=== PATIENT | female | born 1985 | race Caucasian/White ===

== ENCOUNTER → 2017-02-13 10:25 | Outpatient (REF) | payer OTHER, SELFPAY ==
[2017-02-14 05:12] LABS: Hep A Ab, IgM Negative (Negative); Hepatitis B Core Antibody IgM Negative (Negative); Hepatitis B Surface Antigen Negative (Negative)
[2017-02-16 17:11] LABS: Hepatitis C Antibody 0.2 s/co ratio (0.0-0.9)
== END ==
LOC: LAB 10:25
PROVIDERS: Visit Provider Physician Assistant
DX: R74.8 Abnormal levels of other serum enzymes (principal)
CPT/HCPCS: 80074

== ENCOUNTER → 2017-03-01 08:06 | Outpatient (CLI) | payer OTHER, SELFPAY ==
--- NOTE | 2017-03-01 08:13 | US_ITS ---
Ultrasound abdomen limited HISTORY: : Elevated liver enzymes ORDERING PHYSICIAN: RIO Jones PATIENT AGE: 31 years COMPARISON: None FINDINGS: PANCREAS:Unremarkable. No obvious mass or abnormal fluid collection. No ductal dilatation LIVER:There is some increased echogenicity of the liver with decreased through transmission of sound consistent with hepatic steatosis. No focal liver lesion evident. RIGHT KIDNEY:Unremarkable. Normal size and echogenicity. No hydronephrosis GALLBLADDER: No gallstones, gallbladder wall thickening, pericholecystic fluid, or biliary dilatation. IMPRESSION: Fatty liver otherwise negative right upper quadrant ultrasound.
== END ==
PROVIDERS: PCP Emergency Medicine; Visit Provider Physician Assistant
DX: R74.8 Abnormal levels of other serum enzymes (principal)
CPT/HCPCS: 76700

== ENCOUNTER → 2018-06-04 09:31 | Outpatient (CLI) | payer OTHER, SELFPAY ==
[2018-06-04 09:58] LABS: Basophils # 0.1 K/mm3 (0-0.2); Basophils % 0.4 % (0.1-2.0); Eosinophils # 0.4 K/mm3 (0.0-0.4); Eosinophils % 2.7 % (0.1-12.0); Hematocrit 41.4 % (37.0-47.0); Hemoglobin 13.2 g/dL (12.2-16.2); Lymphocytes # 3.4 K/mm3 (0.7-4.5); Lymphocytes % 24.9 % (10-50); Mean Corpuscular HGB Conc 31.9 g/dL (31.8-35.4); Mean Corpuscular Hemoglobin 28.3 pg (27.0-31.2); Mean Corpuscular Volume 88.6 fl (81-99); Mean Platelet Volume 7.6 fl (7.4-10.4); Monocytes # 0.5 K/mm3 (0.1-1.0); Monocytes % 3.7 % (1.7-9.3); Neutrophils # 9.3 K/mm3 (1.8-7.8); Neutrophils % 68.4 % (37.0-80.0); Platelet Count 427 K/mm3 (142-424); Red Blood Count 4.67 M/mm3 (4.20-5.40); Red Cell Distribution Width 13.8 % (11.5-17.5); White Blood Count 13.6 K/mm3 (4.8-10.8)
[2018-06-04 14:41] LABS: Alanine Aminotransferase 84 U/L (12-78); Albumin Level 3.2 gm/dL (3.4-5.0); Albumin/Globulin Ratio 0.7 (1.1-1.8); Alkaline Phosphatase 138 U/L (46-116); Anion Gap 12.5 mEq/L (5-15); Aspartate Amino Transferase 53 U/L (15-37); Bilirubin,Total 0.3 mg/dL (0.2-1.0); Blood Urea Nitrogen 6 mg/dL (7-18); Calcium 9.3 mg/dL (8.5-10.1); Carbon Dioxide 31 mmol/L (21.0-32.0); Chloride 97 mmol/L (98-107); Chol/HDL Ratio 5.4 (1-3.5); Cholesterol 221 mg/dL (140-200); Creatinine,Serum 0.85 mg/dL (0.55-1.02); Estimated Glomerular Filt Rate 76 ml/min (>60); GFR (African American) 92 ML/MIN (>60); Globulin 4.4 gm/dl (1.3-3.2); Glucose 102 mg/dL (74-106); HDL Cholesterol 41 mg/dL (29-89); LDL Cholesterol 128 mg/dL (0-130); Potassium 4.5 mmoL/L (3.5-5.1); Sodium 136 mmol/L (136-145); Thyroid Stimulating Hormone 2.05 uIU/ml (0.358-3.740); Total Protein,Serum 7.6 gm/dL (6.4-8.2); Triglycerides 261 mg/dL (30-200); VLDL Cholesterol 52 mg/dL (0-40)
== END ==
PROVIDERS: Visit Provider Psychiatry & Neurology Psychiatry
DX: F25.9 Schizoaffective disorder, unspecified (principal)
CPT/HCPCS: 36415; 80053; 80061; 83036; 84443; 85025

== ENCOUNTER 2019-08-04 07:19 | Emergency (ER) | payer OTHER, SELFPAY ==
--- NOTE | 2019-08-04 | ECG_ITS ---
APPROVED REPORT Exam: Resting ECG HR:100 bpm ECG Measurements Heart Rate 100 AXES TX 170 P 53 QRSd 78 QRS 52 QT 350 T 50 QTc 451 <Conclusion> Normal sinus rhythm Incomplete RBBB Otherwise a Normal ECG Electronically signed by : Timothy Mabry, 08/05/2019 19:12:49
[2019-08-04 07:20] VITALS: BP 120/77; PULSE 105; RESP 16; O2SAT 99; BMI 73.1
--- NOTE | 2019-08-04 07:31 | XR_ITS ---
PROCEDURE: XR CHEST PORTABLE CLINICAL HISTORY: sob Shortness of breath COMPARISON: CXR1 CHEST-PORTABLE from 07/28/2014 CXR1 CHEST-PORTABLE from 07/28/2014 FINDINGS: Somewhat limited exam secondary to patient's body habitus. Mild cardiomegaly with mild pulmonary venous congestion suggesting mild CHF. No lobar consolidation or collapse IMPRESSION: Mild CHF Dictated by: Kamari Bello MD 08/04/2019 08:00 Electronically signed by Kamari Bello MD in [place] 08/04/2019 08:00
[2019-08-04 07:34] VITALS: TEMP 37.4
[2019-08-04 07:48] LABS: Basophils # 0.1 K/mm3 (0-0.2); Basophils % 0.3 % (0.1-2.0); Eosinophils # 0.5 K/mm3 (0.0-0.4); Eosinophils % 2.9 % (0.1-12.0); Hematocrit 37.9 % (37.0-47.0); Hemoglobin 12.5 g/dL (12.2-16.2); Lymphocytes # 3.6 K/mm3 (0.7-4.5); Lymphocytes % 21.7 % (10-50); Mean Corpuscular HGB Conc 32.9 g/dL (31.8-35.4); Mean Corpuscular Hemoglobin 28.6 pg (27.0-31.2); Mean Corpuscular Volume 86.8 fl (81-99); Mean Platelet Volume 8.8 fl (7.4-10.4); Monocytes # 0.7 K/mm3 (0.1-1.0); Monocytes % 4.2 % (1.7-9.3); Neutrophils # 11.7 K/mm3 (1.8-7.8); Neutrophils % 70.8 % (37.0-80.0); Platelet Count 386 K/mm3 (142-424); Red Blood Count 4.36 M/mm3 (4.20-5.40); Red Cell Distribution Width 15.1 % (11.5-17.5); White Blood Count 16.6 K/mm3 (4.8-10.8)
[2019-08-04 07:56] LABS: Chloride 94 mmol/L (98-107); Potassium 3.8 mmoL/L (3.5-5.1); Sodium 129 mmol/L (136-145)
[2019-08-04 07:59] LABS: Alanine Aminotransferase 147 U/L (12-78); Albumin Level 3.8 g/dl (3.5-5.0); Alkaline Phosphatase 125 U/L (38-126); Anion Gap 6.8 mEq/L (5-15); Aspartate Amino Transferase 199 U/L (14-36); Bilirubin,Total 0.7 mg/dl (0.2-1.3); Blood Urea Nitrogen 9 mg/dl (7-17); Carbon Dioxide 32 mmol/L (22.0-30.0); Creatinine Clearance Estimated 88 mL/min (50-200); Estimated Glomerular Filt Rate 95 ml/min (>60); GFR (African American) 115 ML/MIN (>60); Globulin 3.8 g/dL (1.3-3.2); MANUAL DIFFERENTIAL MANUAL DIFFERENTIAL (MANUAL DIFF); Total Protein,Serum 7.6 g/dl (6.3-8.2)
[2019-08-04 08:00] LABS: Calcium 9.2 mg/dl (8.4-10.2); Glucose 140 mg/dl (74-100)
[2019-08-04 08:02] VITALS: BP 138/87; PULSE 101; RESP 22; O2SAT 91
[2019-08-04 08:11] LABS: Microscopic, Urine URINE MICROSCOPIC (MICROSCOPIC)
[2019-08-04 08:13] LABS: Appearance,Urine CLEAR (Clear); Bilirubin,Urine Negative (Negative); Blood, Urine Negative (Negative); Color,Urine YELLOW (Yellow); Glucose,Urine (UA) Negative (Negative); Ketones,Urine Negative (Negative); Leukocyte Esterase,Urine Negative (Negative); Nitrate,Urine Negative (Negative); Protein,Urine Negative (Negative); Urobilinogen,Urine 0.2 EU/dl (0.2)
[2019-08-04 08:13] LABS: Eosinophils % 3 % (0-3); Lymphocytes % 22 % (10-50); Monocytes % 4 % (2-9); Neutrophils % 71 % (42-76); Platelet Estimate Normal; RBC Morphology Normal; Total Cells Counted 100
[2019-08-04 08:14] LABS: Troponin I < 0.01 ng/ml (0.00-0.034)
[2019-08-04 08:24] LABS: Benzodiazepines Screen,Urine Negative ng/ml (<200)
[2019-08-04 08:25] LABS: Amphetamine/Metha Screen,Urine Negative ng/ml (<1000); Barbiturates Screen,Urine Negative ng/ml (<200)
[2019-08-04 08:26] LABS: Methadone Screen,Urine Negative ng/ml (<300)
[2019-08-04 08:27] LABS: Cannabinoid Screen,Urine Negative ng/ml (<50); Cocaine Screen,Urine Negative ng/ml (<300); Urine Pregnancy, HCG Qual. Negative (Negative)
[2019-08-04 08:28] LABS: Opiate Screen,Urine Negative ng/ml (<300)
[2019-08-04 08:29] LABS: Phencyclidine Screen,Urine Negative ng/ml (<25)
[2019-08-04 08:44] VITALS: BP 111/72; PULSE 94; RESP 20; O2SAT 93
[2019-08-04 08:59] LABS: Bacteria,Urine Trace /lpf
--- NOTE | 2019-08-04 09:00 | HMH.EDGENADL ---
ED Disposition Clinical Impression: UTI (urinary tract infection) Disposition: Home, Self-Care Condition on Discharge: Good Prescriptions: Sulfamethoxazole/Trimethoprim [Bactrim DS tablet] 1 each PO BID 10 Days #20 tab Transmission Status: Received by [id number] Referrals: Provider,Referral, [Primary Care Provider] - - Critical Care Critical Care Time: No Attestation: On 08/04/19, the high probability of a clinically significant, sudden or life threatening deterioration of the following system(s) required my full and direct attention, intervention and personal management. The time I documented below is in addition to time spent performing reported procedures but includes the following listed in this critical care notation. Medical Decision Making - Medical Records Medical records reviewed: Yes: I reviewed the patient's medical records. - Kevan Inquiry Pt receiving controlled substance: No Vital Signs: 08/04/19 07:20 08/04/19 07:34 08/04/19 08:02 Temperature 99.3 F Temperature Source Oral Pulse Rate [Left Radial] 105 H 101 H Respiratory Rate 16 22 Blood Pressure [Right Arm] 120/77 138/87 Blood Pressure Mean [Right Arm] 91 104 Blood Pressure Source [Right Arm] Automatic Cuff Blood Pressure Position [Right Arm] Sitting Sitting 02 Sat by Pulse Oximetry 99 91 L Oxygen Delivery Method Room Air Room Air 08/04/19 08:44 Temperature Temperature Source Pulse Rate [Left Radial] 94 H Respiratory Rate 20 Blood Pressure [Right Arm] 111/72 Blood Pressure Mean [Right Arm] 85 Blood Pressure Source [Right Arm] Blood Pressure Position [Right Arm] 02 Sat by Pulse Oximetry 93 L Oxygen Delivery Method Room Air - Lab Data Lab results reviewed: Yes: I reviewed the patient's lab results. Lab Results 08/04/19 07:35: WBC 16.6 H, RBC 4.36, Hgb 12.5, Hct 37.9, MCV 86.8, MCH 28.6, MCHC 32.9, RDW 15.1, Plt Count 386, MPV 8.8, Neut % (Auto) 70.8, Lymph % (Auto) 21.7, [place] % (Auto) 4.2, Eos % (Auto) 2.9, Baso % (Auto) 0.3, Neut # (Auto) 11.7 H, Lymph # (Auto) 3.6, [place] # (Auto) 0.7, Eos # (Auto) 0.5 H, Baso # (Auto) 0.1, Total Counted 100, Neutrophils % (Manual) 71, Lymphocytes % (Manual) 22, Monocytes % (Manual) 4, Eosinophils % (Manual) 3, Platelet Estimate Normal, RBC Morphology Normal 08/04/19 07:35: Sodium 129 L, Potassium 3.8, Chloride 94 L, Carbon Dioxide 32 H, Anion Gap 6.8, BUN 9, Creatinine 0.70, Estimated Creat Clear 88, Estimated GFR 95, Est GFR ( Amer) 115, Glucose 140 H, Calcium 9.2, Total Bilirubin 0.7, AST 199 H, ALT 147 H, Alkaline Phosphatase 125, Troponin I < 0.01, Total Protein 7.6, Albumin 3.8, Globulin 3.8 H, Albumin/Globulin Ratio 1.0 L 08/04/19 08:04: Urine Color Yellow, Urine Appearance Clear, Urine pH 6.0, Ur Specific [place] 1.010, Urine Protein Negative, Urine Glucose (UA) Negative, Urine Ketones Negative, Urine Blood Negative, Urine Nitrate Negative, Urine Bilirubin Negative, Urine Urobilinogen 0.2, Ur Leukocyte Esterase Negative, Urine RBC 3-5, Urine WBC 5-10, Ur Squamous Epith Cells 5-10, Urine Bacteria Trace 08/04/19 08:04: Urine HCG, Qual Negative 08/04/19 08:04: Urine Opiates Screen Negative, Urine Methadone Screen Negative, Ur Barbituates Screen Negative, Ur Phencyclidine Scrn Negative, Ur Amphetamines Screen Negative, U Benzodiazepines Scrn Negative, Urine Cocaine Screen Negative, U Marijuana (THC) Screen Negative 08/04/19 08:42: Lactate 2.0 Result diagrams: 08/04/19 07:35 08/04/19 07:35 Orders (Tests/Meds): ED MEDICATIONS Discontinued Medications Generic Name Dose Route Start Last Admin Trade Name Freq PRN Reason Stop Dose Admin Sodium Chloride 1,000 mls @ 999 mls/hr 08/04/19 07:45 08/04/19 07:43 Sod Chlor 0.9% 1000ml Bag IV 08/04/19 08:45 999 mls/hr .Q1H1M FADY Administration ORDERS Category Date Time Status SARS-CoV-2, JAD Stat Lab 08/04/19 09:11 Ordered Troponin I Q3H Lab 08/04/19 10:30 Ordered Troponin I Q3H Lab 08/04/19
--- NOTE | 2019-08-04 09:49 | PC.NURSE ---
pt up and down anxious, given tray, eating breakfast at this time.
--- NOTE | 2019-08-04 10:39 | PC.NURSE ---
pt keeps removing bp cuff
[2019-08-04 11:07] VITALS: BP 123/78; PULSE 97; O2SAT 94
[2019-08-04 11:39] VITALS: BP 129/74; PULSE 78; RESP 16; TEMP 36.6; O2SAT 98
[2019-08-04 11:41] LABS: Troponin I < 0.01 ng/ml (0.00-0.034)
[2019-08-06 04:40] LABS: Covid-19 Nasal PCR Sendout Lex NOT DETECTED
== END 2019-08-04 11:40 | disposition home or self-care (01) ==
PROVIDERS: Family Medicine; Emergency Provider Emergency Medicine
DX: N30.00 Acute cystitis without hematuria (principal); F25.0 Schizoaffective disorder, bipolar type; F41.9 Anxiety disorder, unspecified; F17.210 Nicotine dependence, cigarettes, uncomplicated; Z88.0 Allergy status to penicillin; Z88.8 Allergy status to other drugs, medicaments and biological substances; Z03.818 Encounter for observation for suspected exposure to other biological agents ruled out
CPT/HCPCS: 36415; 71045; 80053; 80305; 81001; 81025; 83605; 84484; 85007; 85025; 87040; 93005; 96365; 99284; U0004

== ENCOUNTER 2019-08-13 00:01 | Emergency (ER) | payer OTHER, SELFPAY ==
[2019-08-13 00:03] VITALS: BP 150/80; PULSE 103; RESP 16; TEMP 37.3; O2SAT 99; BMI 75.5
[2019-08-13 00:17] LABS: Basophils # 0.1 K/mm3 (0-0.2); Basophils % 0.4 % (0.1-2.0); Eosinophils # 0.6 K/mm3 (0.0-0.4); Eosinophils % 3.5 % (0.1-12.0); Hematocrit 38.4 % (37.0-47.0); Lymphocytes # 4.4 K/mm3 (0.7-4.5); Lymphocytes % 27.8 % (10-50); Mean Corpuscular HGB Conc 33.9 g/dL (31.8-35.4); Mean Corpuscular Hemoglobin 28.5 pg (27.0-31.2); Mean Corpuscular Volume 84.1 fl (81-99); Mean Platelet Volume 7.7 fl (7.4-10.4); Monocytes # 0.5 K/mm3 (0.1-1.0); Monocytes % 3.4 % (1.7-9.3); Neutrophils # 10.2 K/mm3 (1.8-7.8); Neutrophils % 64.9 % (37.0-80.0); Platelet Count 394 K/mm3 (142-424); Red Blood Count 4.56 M/mm3 (4.20-5.40); White Blood Count 15.8 K/mm3 (4.8-10.8)
[2019-08-13 00:25] LABS: Alanine Aminotransferase 139 U/L (12-78); Alkaline Phosphatase 125 U/L (38-126); Anion Gap 13.2 mEq/L (5-15); Aspartate Amino Transferase 134 U/L (14-36); Bilirubin,Total 0.4 mg/dl (0.2-1.3); Blood Urea Nitrogen 5 mg/dl (7-17); Calcium 9.7 mg/dl (8.4-10.2); Carbon Dioxide 31 mmol/L (22.0-30.0); Chloride 92 mmol/L (98-107); Creatinine Clearance Estimated 84 mL/min (50-200); Estimated Glomerular Filt Rate 95 ml/min (>60); GFR (African American) 115 ML/MIN (>60); Globulin 4.2 g/dL (1.3-3.2); Glucose 180 mg/dl (74-100); Potassium 3.2 mmoL/L (3.5-5.1); Sodium 133 mmol/L (136-145); Total Protein,Serum 8.2 g/dl (6.3-8.2)
[2019-08-13 00:27] LABS: MANUAL DIFFERENTIAL MANUAL DIFFERENTIAL (MANUAL DIFF)
[2019-08-13 00:55] VITALS: BP 127/74; PULSE 110; RESP 16; O2SAT 95
[2019-08-13 01:18] LABS: Eosinophils % 2 % (0-3); Lymphocytes % 36 % (10-50); Monocytes % 3 % (2-9); Neutrophils % 58 % (42-76); Ovalocytes 1+; Platelet Estimate Normal; Stomatocytes 1+; Total Cells Counted 100
[2019-08-13 02:30] VITALS: BP 107/90; PULSE 97; RESP 16; O2SAT 96
[2019-08-13 03:46] VITALS: BP 126/73; PULSE 87; RESP 15; O2SAT 97
--- NOTE | 2019-08-13 04:09 | HMH.EDGENADL ---
ED Disposition Clinical Impression: Hypokalemia Disposition: Home, Self-Care Condition on Discharge: Fair Instructions: DI for Hypokalemia Additional Instructions: Check labs and find your hemoglobin to be essentially within normal limits we do however note that your potassium was low we are giving you a dose of potassium here; would advise potassium supplements Referrals: Provider,Referral, [Primary Care Provider] - Time of Disposition: 04:20 - Critical Care Critical Care Time: No Attestation: On 08/13/19, the high probability of a clinically significant, sudden or life threatening deterioration of the following system(s) required my full and direct attention, intervention and personal management. The time I documented below is in addition to time spent performing reported procedures but includes the following listed in this critical care notation. Medical Decision Making - Medical Records Medical records reviewed: Yes: I reviewed the patient's medical records. MR Comment: Patient states that she thinks she is anemic and her oxygen saturation is low and would like to get these checked. BC shows white blood cell count of 15.8 hemoglobin of 13 CMP shows a potassium of 3.2 plan is to reassure the patient that her hemoglobin is within normal limits we will also give potassium - Kevan Inquiry Pt receiving controlled substance: No Vital Signs: 08/13/19 00:03 08/13/19 00:55 08/13/19 02:30 Temperature 99.2 F Temperature Source Oral Pulse Rate [Right Brachial] 103 H 110 H 97 H Respiratory Rate 16 16 16 Blood Pressure [Right Arm] 150/80 H 127/74 107/90 L Blood Pressure Mean [Right Arm] 103 91 95 Blood Pressure Source [Right Arm] Automatic Cuff Automatic Cuff Blood Pressure Position [Right Arm] Sitting Sitting 02 Sat by Pulse Oximetry 99 95 96 Oxygen Delivery Method Room Air Room Air Room Air 08/13/19 03:46 Temperature Temperature Source Pulse Rate [Right Brachial] 87 Respiratory Rate 15 Blood Pressure [Right Arm] 126/73 Blood Pressure Mean [Right Arm] 90 Blood Pressure Source [Right Arm] Automatic Cuff Blood Pressure Position [Right Arm] Sitting 02 Sat by Pulse Oximetry 97 Oxygen Delivery Method - Lab Data Lab results reviewed: Yes: I reviewed the patient's lab results. Lab Results 08/13/19 00:05: WBC 15.8 H, RBC 4.56, Hgb 13.0, Hct 38.4, MCV 84.1, MCH 28.5, MCHC 33.9, RDW 15.0, Plt Count 394, MPV 7.7, Neut % (Auto) 64.9, Lymph % (Auto) 27.8, [place] % (Auto) 3.4, Eos % (Auto) 3.5, Baso % (Auto) 0.4, Neut # (Auto) 10.2 H, Lymph # (Auto) 4.4, [place] # (Auto) 0.5, Eos # (Auto) 0.6 H, Baso # (Auto) 0.1, Total Counted 100, Neutrophils % (Manual) 58, Lymphocytes % (Manual) 36, Monocytes % (Manual) 3, Eosinophils % (Manual) 2, Basophils % (Manual) 1.0, Platelet Estimate Normal, Ovalocytes 1+, Stomatocytes 1+ 08/13/19 00:05: Sodium 133 L, Potassium 3.2 L, Chloride 92 L, Carbon Dioxide 31 H, Anion Gap 13.2, BUN 5 L, Creatinine 0.70, Estimated Creat Clear 84, Estimated GFR 95, Est GFR ( Amer) 115, Glucose 180 H, Calcium 9.7, Total Bilirubin 0.4, AST 134 H, ALT 139 H, Alkaline Phosphatase 125, Total Protein 8.2, Albumin 4.0, Globulin 4.2 H, Albumin/Globulin Ratio 1.0 L Result diagrams: 08/13/19 00:05 08/13/19 00:05 General Adult HPI - General Chief complaint: Psychiatric Symptoms Stated complaint: psychiatric Time Seen by Provider: 08/13/19 04:00 Mode of Arrival: EMS Source of Information: Patient Limitations: No Limitations Description of Symptoms (Recalled from ER Triage Doc. by RN): Patient brought in by [facility]. Patient refused to give any reports to EMS stating she would only speak with a doctor. On arrival, the only report she was willing to give me was that she was agitated. - History of Present Illness HPI narrative: Patient states that she thinks she is anemic and her oxygen saturation is low and would like to get these checked Onset (ago): hour(s) Severity: mild Severity
[2019-08-13 04:41] VITALS: BP 133/78; PULSE 95; RESP 17; TEMP 37.3; O2SAT 96
--- NOTE | 2019-08-13 04:41 | PC.NURSE ---
Patient is currently trying to contact a ride at this time.
== END 2019-08-13 05:15 | disposition home or self-care (01) ==
PROVIDERS: Emergency Provider Emergency Medicine
DX: E87.6 Hypokalemia (principal); F20.9 Schizophrenia, unspecified; F31.9 Bipolar disorder, unspecified; F17.210 Nicotine dependence, cigarettes, uncomplicated
CPT/HCPCS: 80053; 85007; 85025; 99283

== ENCOUNTER 2020-01-08 16:55 | Emergency (ER) | payer OTHER, SELFPAY ==
[2020-01-08 16:55] VITALS: BP 124/84; PULSE 109; RESP 16; TEMP 36.9; O2SAT 98; BMI 58.6
--- NOTE | 2020-01-08 17:21 | PC.NURSE ---
pt will not allow staff to draw blood or perform EKG
--- NOTE | 2020-01-08 17:30 | HMH.EDGENADL ---
ED Disposition Condition on Discharge: Fair - Critical Care Critical Care Time: No <TravisAlessandro - Last Filed: 01/08/20 19:59> <Michael Boswell - Last Filed: 01/08/20 21:00> Clinical Impression: Psychosis Qualifiers: Psychosis type: schizophrenia Schizophrenia type: unspecified Qualified Code(s): F20.9 - Schizophrenia, unspecified Schizophrenia Qualifiers: Schizophrenia type: unspecified Qualified Code(s): F20.9 - Schizophrenia, unspecified Disposition: Xfer Psychiatric Hosp Referrals: PCP,No [Primary Care Provider] - Attestation: On 01/08/20, the high probability of a clinically significant, sudden or life threatening deterioration of the following system(s) required my full and direct attention, intervention and personal management. The time I documented below is in addition to time spent performing reported procedures but includes the following listed in this critical care notation. Medical Decision Making - Medical Records Medical records reviewed: Yes: I reviewed the patient's medical records. MR Comment: Seen in this emergency department on 08/04/2019 and 08/13/2019. Her behavior on both of these visits per records review was bizarre and consistent with psychiatric illness. - Kevan Inquiry Pt receiving controlled substance: No - Lab Data Result diagrams: 01/08/20 18:14 01/08/20 18:14 - Reevaluation(s) Time: 18:17 <TravisAlessandro - Last Filed: 01/08/20 19:59> - Lab Data Result diagrams: 01/08/20 18:14 01/08/20 18:14 <Michael Boswell - Last Filed: 01/08/20 21:00> Vital Signs: 01/08/20 16:55 Temperature 98.4 F Temperature Source Oral Pulse Rate [Radial] 109 H Respiratory Rate 16 Blood Pressure [Right Arm] 124/84 Blood Pressure Mean [Right Arm] 97 Blood Pressure Position [Right Arm] Sitting 02 Sat by Pulse Oximetry 98 Oxygen Delivery Method Room Air - Lab Data Lab Results 01/08/20 18:14: WBC 14.0 H, RBC 5.47 H, Hgb 15.1, Hct 46.5, MCV 85.1, MCH 27.6, MCHC 32.5, RDW 14.9, Plt Count 415, MPV 8.5, Neut % (Auto) 70.4, Lymph % (Auto) 24.7, [place] % (Auto) 2.2, Eos % (Auto) 2.3, Baso % (Auto) 0.4, Neut # (Auto) 9.9 H, Lymph # (Auto) 3.5, [place] # (Auto) 0.3, Eos # (Auto) 0.3, Baso # (Auto) 0.1 01/08/20 18:14: Sodium 136, Potassium 4.2, Chloride 101, Carbon Dioxide 28, Anion Gap 11.2, BUN 10, Creatinine 0.80, Estimated Creat Clear 70, Estimated GFR 81, Est GFR ( Amer) 98, Glucose 144 H, Calcium 9.3, Total Bilirubin 0.5, AST 48 H, ALT 36, Alkaline Phosphatase 131 H, Total Protein 7.5, Albumin 4.0, Globulin 3.5 H, Albumin/Globulin Ratio 1.1, Salicylates < 1.0 L, Acetaminophen < 10 L 01/08/20 18:14: Plasma/Serum Alcohol < 10 01/08/20 18:16: Urine Color Yellow, Urine Appearance Clear, Urine pH 7.0, Ur Specific [place] 1.010, Urine Protein Negative, Urine Glucose (UA) Negative, Urine Ketones Negative, Urine Blood Negative, Urine Nitrate Negative, Urine Bilirubin Negative, Urine Urobilinogen 0.2, Ur Leukocyte Esterase Negative, Urine RBC None, Urine WBC None, Ur Squamous Epith Cells Occasional, Urine Bacteria None 01/08/20 18:16: Urine Opiates Screen Negative, Urine Methadone Screen Negative, Ur Barbituates Screen Negative, Ur Phencyclidine Scrn Negative, Ur Amphetamines Screen Negative, U Benzodiazepines Scrn Negative, Urine Cocaine Screen Negative, U Marijuana (THC) Screen Negative 01/08/20 18:23: SARS-CoV-2 IgG Ab (Rapid) Negative, SARS-CoV-2 IgM Ab (Rapid) Negative - Reevaluation(s) Reevaluation #1: Sitting in bed arms and legs crossed. I again asked her if she would allow us to draw blood and now she says that she will. She has already gone to the restroom, however, and refused to give a urine sample at that time. (Alessandro Robles) Medical Decision Narrative: 8:00 PM: At shift change, I have discussed the patient with Dr. Boswell, who will assume care of the patient at this time. I have discussed all clinical information including history, physical and diagnostic study results.
--- NOTE | 2020-01-08 18:07 | PC.NURSE ---
pt up to the bathroom independently
--- NOTE | 2020-01-08 18:11 | PC.NURSE ---
pt used the restroom but refused to give this nurse a urine sample when asked
--- NOTE | 2020-01-08 18:16 | PC.NURSE ---
pt given pepsi
--- NOTE | 2020-01-08 18:35 | PC.NURSE ---
pt now allowing staff to draw blood and stated she will give a urine sample when able
[2020-01-08 18:38] LABS: Basophils # 0.1 K/mm3 (0-0.2); Basophils % 0.4 % (0.1-2.0); Eosinophils # 0.3 K/mm3 (0.0-0.4); Eosinophils % 2.3 % (0.1-12.0); Hematocrit 46.5 % (37.0-47.0); Hemoglobin 15.1 g/dL (12.2-16.2); Lymphocytes # 3.5 K/mm3 (0.7-4.5); Lymphocytes % 24.7 % (10-50); Mean Corpuscular HGB Conc 32.5 g/dL (31.8-35.4); Mean Corpuscular Hemoglobin 27.6 pg (27.0-31.2); Mean Corpuscular Volume 85.1 fl (81-99); Mean Platelet Volume 8.5 fl (7.4-10.4); Monocytes # 0.3 K/mm3 (0.1-1.0); Monocytes % 2.2 % (1.7-9.3); Neutrophils # 9.9 K/mm3 (1.8-7.8); Neutrophils % 70.4 % (37.0-80.0); Platelet Count 415 K/mm3 (142-424); Red Blood Count 5.47 M/mm3 (4.20-5.40); Red Cell Distribution Width 14.9 % (11.5-17.5)
[2020-01-08 18:41] LABS: Chloride 101 mmol/L (98-107); Potassium 4.2 mmoL/L (3.5-5.1); Sodium 136 mmol/L (136-145)
[2020-01-08 18:44] LABS: Alanine Aminotransferase 36 U/L (12-78); Albumin/Globulin Ratio 1.1 (1.1-1.8); Alkaline Phosphatase 131 U/L (38-126); Anion Gap 11.2 mEq/L (5-15); Aspartate Amino Transferase 48 U/L (14-36); Bilirubin,Total 0.5 mg/dl (0.2-1.3); Blood Urea Nitrogen 10 mg/dl (7-17); Calcium 9.3 mg/dl (8.4-10.2); Carbon Dioxide 28 mmol/L (22.0-30.0); Creatinine Clearance Estimated 70 mL/min (50-200); Estimated Glomerular Filt Rate 81 ml/min (>60); GFR (African American) 98 ML/MIN (>60); Globulin 3.5 g/dL (1.3-3.2); Glucose 144 mg/dl (74-100); Total Protein,Serum 7.5 g/dl (6.3-8.2)
[2020-01-08 18:45] LABS: Acetaminophen < 10 ug/ml (10-30); Salicylate < 1.0 mg/dL (2.0-20.0)
[2020-01-08 18:47] LABS: Ethyl Alcohol < 10 mg/dl (0-10)
[2020-01-08 18:49] LABS: Microscopic, Urine URINE MICROSCOPIC (MICROSCOPIC)
[2020-01-08 18:50] LABS: Appearance,Urine CLEAR (Clear); Bilirubin,Urine Negative (Negative); Blood, Urine Negative (Negative); Color,Urine YELLOW (Yellow); Glucose,Urine (UA) Negative (Negative); Ketones,Urine Negative (Negative); Leukocyte Esterase,Urine Negative (Negative); Nitrate,Urine Negative (Negative); Protein,Urine Negative (Negative); Urobilinogen,Urine 0.2 EU/dl (0.2)
--- NOTE | 2020-01-08 18:51 | PC.NURSE ---
attempted to called [facility]. no answer
[2020-01-08 18:58] LABS: Coronavirus 19 IgG Antibody Negative (Negative); Coronavirus 19 IgM Antibody Negative (Negative)
[2020-01-08 19:02] LABS: Squamous Epithelial Cell,Urine Occasional #/hpf (0-5)
[2020-01-08 19:03] LABS: Amphetamine/Metha Screen,Urine Negative ng/ml (<1000)
[2020-01-08 19:04] LABS: Barbiturates Screen,Urine Negative ng/ml (<200); Benzodiazepines Screen,Urine Negative ng/ml (<200)
[2020-01-08 19:05] LABS: Cannabinoid Screen,Urine Negative ng/ml (<50)
[2020-01-08 19:06] LABS: Cocaine Screen,Urine Negative ng/ml (<300); Methadone Screen,Urine Negative ng/ml (<300)
[2020-01-08 19:07] LABS: Opiate Screen,Urine Negative ng/ml (<300)
[2020-01-08 19:08] LABS: Phencyclidine Screen,Urine Negative ng/ml (<25)
--- NOTE | 2020-01-08 20:31 | PC.NURSE ---
call placed to [facility]. spoke with gregory. waiting on return call for update of status.
--- NOTE | 2020-01-08 20:58 | PC.NURSE ---
received call from [place]. phone interview unsuccessful. stated she is not a candidate for voluntary hold
--- NOTE | 2020-01-08 21:04 | PC.NURSE ---
faxed paperwork to [employer]. [phone]
--- NOTE | 2020-01-08 21:18 | PC.NURSE ---
pt left via [facility], petitioned via court for hold status. intended transfer to [facility]. emv 13. ambulatory. no acute distress. all paperwork sent with patient
[2020-01-08 21:35] VITALS: BP 138/79; PULSE 76; RESP 19; TEMP 36.9; O2SAT 98
== END 2020-01-08 21:41 ==
PROVIDERS: Emergency Provider Emergency Medicine
DX: F29 Unspecified psychosis not due to a substance or known physiological condition (principal); F20.9 Schizophrenia, unspecified; F17.210 Nicotine dependence, cigarettes, uncomplicated; Z88.0 Allergy status to penicillin; Z79.899 Other long term (current) drug therapy; Z01.84 Encounter for antibody response examination
CPT/HCPCS: 80053; 80305; 80329; 81001; 85025; 86328; 99283